=== PATIENT | male | born 1975 | race African-American/Black ===

== ENCOUNTER 2017-02-05 00:57 | Emergency (ER) | payer OTHER ==
[~2017-02-05] VITALS: Ht 182.9 cm; Wt 72.0 kg
[~2017-02-05 00:57] MED LIST: BACTRIM,SEPT1 TABLET PO; COLACE100 MG PO; CYCLOBENZAPRINE10 MG PO; CYMBALTA60 MG PO; MOTRIN800 MG PO; NEURONTIN100 MG PO; NORCO 5/3251 TABLET PO; NORTRIPTYLINE H25 MG PO; PERCOCET 7.51 TABLET PO; PROZAC20 MG PO; ZANAFLEX4 M1 PO
[2017-02-05 02:56] VITALS: BP 158/72
== END 2017-02-05 02:57 | disposition home or self-care (01) ==
LOC: EME 00:57
DX: F10.129 Alcohol abuse with intoxication, unspecified (principal); F17.200 Nicotine dependence, unspecified, uncomplicated
CPT/HCPCS: 99281; 99284